=== PATIENT | male | born 1935 | race Caucasian/White ===

== ENCOUNTER → 2016-07-26 12:06 | Outpatient (CLI) | payer MEDICARE, OTHER ==
[~2016-07-26 12:06] MED LIST: ARICEPT5 MG PO; LUMIGAN 0.01%2.5 ML EACH EYE; MILK OF MAGNESI30 ML PO; PRINIVIL20 MG PO; SENOKOT-S TABLE1 TAB PO; TIMOPTIC 0.5 % O5 ML EACH EYE; VITAMIN B-121000 MCG PO; VITAMIN D5000 UNIT PO; XALATAN 0.0052.5 ML EACH EYE; ZOLOFT50 MG PO
== END | disposition home or self-care (01) ==
LOC: D.CT 10:00
DX: I71.4 Abdominal aortic aneurysm, without rupture (principal); T85.638A Leakage of other specified internal prosthetic devices, implants and grafts, initial encounter

== ENCOUNTER 2016-08-20 20:24 | Inpatient (IN) | payer MEDICARE, OTHER ==
[2016-08-20] MEDS ORDERED: PRINIVIL20 MG PO (20:55)
[2016-08-20] MEDS ORDERED: LUMIGAN 0.01%2.5 ML EACH EYE (20:56)
[2016-08-20] MEDS ORDERED: XALATAN 0.0052.5 ML EACH EYE (20:56)
[2016-08-20] MEDS ORDERED: TIMOPTIC 0.5 % O5 ML EACH EYE (20:57)
--- NOTE | 2016-08-20 20:59 | NUR ---
PT WAS ADMITTED TO [facility] FROM [facility] AFTER VISITING WITH DR. MAGDALENO. DR. MAGDALENO REPORTED THAT THE PT HAD ELOPED FROM [facility] AND [place] [address] WHEN STAFF ATTEMPTED TO TAKE PT BACK INTO THE BUILDING HE BECAME COMBATIVE WITH STAFF. PT HAS BEEN REFUSING MEDICATIONS AND CARE PER FACILITY. PT CONSENTED TO BE ADMITTED TO [facility]. PT IS ALMOST BLIND AND HAS DIFFICULTY SEEING THINGS. STAFF POINTS THINGS OUT AND GUIDES PT TO WHERE HE NEEDS TO BE. PT IS CONFUSED BUT NO AGGRESSION NOTED AT THIS TIME. PT BROUGHT HIS OWN WALKER. FALL PRECAUTIONS INITIATED. CODE STATUS ADDRESSED AND PT IS A FULL CODE.
[2016-08-21 06:52] LABS: BASOPHILS 0.2 % (0.0-2.0); EOSINOPHILS 6.4 % (0-7); HEMATOCRIT 36.5 % (42.0-54.0); HEMOGLOBIN 11.5 g/dL (13.5-17.5); IMMATURE GRANULOCYTES 0.1 % (0-5); LYMPHOCYTES 24.8 % (15-50); MCH 29.7 pg (26.0-34.0); MCHC 31.5 g/dL (31.0-37.0); MCV 94.3 fL (80.0-100.0); MEAN PLATELET VOLUME 9.4 fL (7.4-10.4); NEUTROPHILS 59.5 % (40-80); PLATELET COUNT 188 10x3/uL (130-400); RBC 3.87 10x6/uL (4.20-6.10); RDW 14.3 % (11.5-14.5); WBC 8.7 10x3/uL (4.8-10.8)
[2016-08-21 07:07] LABS: HEMOGLOBIN A1C 4.9 % (4.8-6.0)
[2016-08-21 07:22] LABS: ALBUMIN 3.1 g/dL (3.4-5.0); ANION GAP 10.8 mmol/L (8-16); BILIRUBIN - TOTAL 0.4 mg/dL (0.2-1.3); CALCIUM 8.6 mg/dL (8.5-10.1); CHOL - HDL RATIO 2.9 ratio (2.3-4.9); CREATININE - SERUM 1.2 mg/dL (0.6-1.3); LDL-HDL RATIO 1.7 ratio (1.5-3.5); POTASSIUM - SERUM 3.8 mmol/L (3.5-5.1); PROTEIN - SERUM 6.1 g/dL (6.4-8.2); THYROID STIMULATING HORMONE 1.82 uIU/mL (0.36-3.74)
[2016-08-21 08:36] VITALS: BP 185/95
[2016-08-21 10:57] VITALS: Ht 170.2 cm
--- NOTE | 2016-08-21 14:48 | NUR ---
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 appetite good, feeds self. Administer medications as ordered and provide group activity as directed. No s/s adverse reaction to medications. Cont current plan of care, monitoring for aggression, elopement, and combativeness.
[2016-08-21 19:30] VITALS: BP 165/72
--- NOTE | 2016-08-21 23:48 | NUR ---
B) Recieved patient laying on the couch in the day room, alert and oriented to self, calm and cooperative with staff, I) Administered perscribed medications, assisted with ambulation, R) Medication compliant, friendly and pleasant, P) Continue plan of care, continue to monitor.
[2016-08-22 06:14] LABS: RAPID PLASMA REAGIN Non Reactive (Non Reactive)
[2016-08-22 08:21] LABS: FOLATE (FOLIC ACID) - SERUM 11.7 ng/mL (>3.0)
[2016-08-22 09:32] VITALS: BP 195/89
[2016-08-22 10:19] LABS: VITAMIN D 25 HYDROXY 13.1 ng/mL (30.0-100.0)
--- NOTE | 2016-08-22 12:03 | NUR ---
(B)RECEIVED PATIENT SITTING IN A CHAIR AT THE NURSES STATION. ORIENTED TO SELF AND DAY AEB STATING "WHERE I WAS YESTERDAY" WHEN ASKING WHERE HE IS. POOR INSIGHT INTO THE REASON FOR HOSPITALIZATION RELATING "I REALLY DON'T KNOW." WHEN PATIENT WAS TOLD THE REASON FOR HOSPITALIZATION PATIENT RELATES "I TOLD THEM I HAD TO GO HOME AND THEY RELEASED ME SO I THOUGHT I COULD LEAVE." PATIENT HAS A SORE TO THE RIGHT SIDE OF HIS NOSE RELATING TO THE NURSE IT IS CANCER. ALSO MIKE TO LEFT EYE. (I)ADMINISTER MEDS AND MONITOR COMPLIANCE. REORIENT NEEDED. (R)MED COMPLIANT. POOR REORIENTATION DUE TO IMPAIRED ABILITY TO COMPREHEND, PROCESS AND MAINTAIN INFORMATION. (P)CONTINUE POC AND MAINTAIN FALL PRECAUTIONS.
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
--- NOTE | 2016-08-22 14:39 | PSY ---
PATIENT NAME:DEREJE PAULINO SR MEDICAL RECORD: [id number] : 34 LOCATION:[facility] ADMISSION DATE: 08/20/16 ACCOUNT: [id number] PSYCHIATRIC EVALUATION DATE OF EVALUATION: 08/21/16 Psychiatric Evaluation IDENTIFYING DATA: The patient is 81 years old and he is admitted to the hospital on a voluntary basis. CHIEF COMPLAINT: Confusion. HISTORY OF PRESENT ILLNESS: The patient lives in a local assisted living center. Apparently, he has been walking away from the center and has been found near the highway more than once. On more than one occasion, the patient became combative with the staff at the assisted living center after he had walked away. He has been refusing his medications there and cannot give any good reason why he will not take them. When I asked about this, he denies all of it, says that it is all made up. The patient has almost no visual acuity, I presume that is related to macular degeneration, but I do not know with certainty. He denies thoughts of harming himself or others. He denies psychotic symptoms. PAST MEDICAL HISTORY: Significant for glaucoma, hypertension. PAST PSYCHIATRIC HISTORY: Negative by his report. The patient has not been diagnosed with dementia as far as I know. FAMILY HISTORY: Unknown. ALLERGIES: No known drug allergies. CURRENT MEDICATIONS: Include multiple eye drops for glaucoma and Zestril. SOCIAL HISTORY: The patient is . He lives in [facility]. He does have adult children who are involved with his care. MENTAL STATUS EXAMINATION: The patient is awake, alert and oriented to person, place and somewhat to time and situation. His mood is euthymic. His affect appropriate. Thought processes are circumstantial. Memory, concentration and abstraction abilities are moderately impaired and he denies any active intent to harm himself or others as well as overt psychotic symptoms. ASSETS: Supportive family members. LIABILITIES: Limited insight. 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 AXIS II: None. AXIS III: Blindness and hypertension. AXIS IV: Moderate stressors. AXIS V: Global assessment of functioning is 30. PLAN: At this time, the patient is admitted to the hospital for a comprehensive medical, psychological, and social evaluation. He will be treated with both mood stabilizing and memory enhancing medications. His long-term prognosis is guarded. TRANSINT:[id number] Voice Confirmation ID: [id number] DOCUMENT ID: [id number] STEPHANIE SMITH MD at 1439 CC: [id number] DICTATION DATE: 08/21/161824 SCAFFOLD BUILDER: 08/21/162041 ADM IN [facility] [address] [place] [address]
[2016-08-22 20:24] VITALS: BP 125/69
--- NOTE | 2016-08-23 02:35 | NUR ---
PATIENT IN DAYROOM ON SOFA. OREINTED TO SELF, TIME AND PLACE. PATIENT IS ISOLATING. HE IS ANXIOUS ABOUT LEAVING THE UNIT. HE HAS CONCERNS ABOUT WANTING TO PERSERVE HIS REMAINING EYESIGHT. PATIENT IS COOPERATIVE WITH MEDICATION BUT GUARDED. CONTINUE TO MONITOR, CONTINUE PLAN OF CARE.
[2016-08-23 09:25] VITALS: BP 180/102
--- NOTE | 2016-08-23 12:13 | NUR ---
B.) Alert and oriented to name only, has no insight to place, time or reason for hospitalization, when asked questions only response is " going over there for breakfast." I.) Administer medications and monitor compliance, monitor for any inappropriate behavior. Encourage group participation and monitor safety. R.) No evidence of reorientaion, AEB inability to process and retain information. Follows directions with no aggression. Compliant with medications and care. Had Dr. Jean testing today. P.) Continue with plan of care.
[2016-08-23 13:45] LABS: APPEARANCE CLEAR (CLEAR); BACTERIA FEW /hpf (NONE SEEN); BILIRUBIN NEGATIVE (NEGATIVE); COLOR YELLOW (YELLOW); EPITHELIAL CELLS 0-5 /hpf (0-5); GLUCOSE NEGATIVE (NEGATIVE); KETONE NEGATIVE (NEGATIVE); LEUKOCYTE ESTERASE TRACE (NEGATIVE); MUCUS <1+ /lpf (NONE SEEN); NITRITE NEGATIVE (NEGATIVE); PROTEIN TRACE mg/dL (NEGATIVE); SPECIFIC GRAVITY 1.015 (1.005-1.020); UROBILINOGEN NORMAL (NORMAL); WHITE CELLS - URINE 0-5 /hpf (0-5)
--- NOTE | 2016-08-23 14:12 | PN ---
PATIENT:DEREJE PAULINO SR MEDICAL RECORD: [id number] LOCATION:[facility]113 ADMISSION DATE: 08/20/16 PROGRESS NOTE DATE OF SERVICE: 08/22/2016 SUBJECTIVE: The patient's case was discussed with staff. He has no new complaint. OBJECTIVE: The patient is very impaired cognitively. He has poor insight about his situation. ASSESSMENT: No change in diagnoses. PLAN: Current medicines and therapies have been reviewed and will be maintained. His long-term prognosis is guarded. I am going to start him on a dose of Aricept to 5 mg at bedtime. Aricept is being used to treat his underlying psychotic symptoms. TRANSINT:[id number] Voice Confirmation ID: [id number] DOCUMENT ID: [id number] STEPHANIE SMITH MD at 1412 CC: [id number] DICTATION DATE: 08/22/16 1836 DOOR MANAGER: 08/22/16 9 ADM IN [place] [id number] [place] [address]
[2016-08-23 21:50] VITALS: BP 180/93
--- NOTE | 2016-08-24 02:40 | NUR ---
B) Recieved patient sitting on couch in the day room, alert and oriented to name only, confused and unaware of being in a hospital, I) Administered perscribed medications, redirected as needed, R) Medication compliant, cooperative, P) Continue plan of care, continue to monitor.
[2016-08-24 09:40] VITALS: BP 172/96
--- NOTE | 2016-08-24 11:57 | PN ---
PATIENT:DEREJE PAULINO SR MEDICAL RECORD: [id number] LOCATION:[facility]113 ADMISSION DATE: 08/20/16 PROGRESS NOTE DATE OF SERVICE: 08/23/2016 SUBJECTIVE: The patient's case was discussed with staff. He has no new complaint. OBJECTIVE: The patient has not been aggressive with staff today. He has been refusing some of his medications intermittently, but denies it when I ask about it. ASSESSMENT: No change in diagnoses. PLAN: Brief supportive and educational interventions were made. Senior Living prognosis is guarded. TRANSINT:[id number] Voice Confirmation ID: [id number] DOCUMENT ID: [id number] STEPHANIE SMITH MD at 1157 CC: [id number] DICTATION DATE: 08/23/16 1444 PRECISION INSTRUMENT MAKER: 08/23/16 1831 ADM IN [place] [id number] [place] [address]
--- NOTE | 2016-08-24 13:30 | NUR ---
Alert and oriented to self only, when asked where he is he sttes " this table, same place as yesterday." would never state place or reason for hospitalization. Smiles and avoids answering questions. " Administer medications and monitor compliance. Redirect and reorient as need. Monitor for any exit seeking behaviors. Maintain safety. Compliant with medications, no evidence of reorientations, states "my mind is slipping." Ambulatory on unit with no exit seeking noted. No aggression. Cooperative with unit milieu. Safety maintained.
[2016-08-24 19:30] VITALS: BP 168/96
--- NOTE | 2016-08-25 02:13 | NUR ---
B) Recieved sitting on the couch in the day room, alert and oriented to self, calm and cooperative, confused and unaware of surroundings, I) Administered perscribed medications, monitored for falls and safety, R) Medication compliant, resting now quietly in his room, P) Continue plan of care, continue to monitor.
[2016-08-25 07:00] VITALS: BP 180/79
--- NOTE | 2016-08-25 15:12 | NUR ---
PT IS RECEIVED SITTING IN CHAIR IN FRONT OF NURSE STATION. PT IS ALERT AND ORIENTED TO SELF ONLY. PT DENIES PAIN. NO HALLUCIANTIONS ARE NOTED OR REPORTED. PT IS QUITE, CALM AND SITS ON THE COUCH MAJORITY OF THE DAY. PT HAS BEEN COOPERATIVE WITH STAFF AND IS COMPLIANT WITH MED'S AND CARE. NO AGGRESSION NOTED. PT IS REDIRECTED AND REORIENTED NEEDED. SAFETY MEASURES ARE IMPLEMENTED. WILL CONTINUE TO MONITOR.
[2016-08-25 19:30] VITALS: BP 190/73
--- NOTE | 2016-08-25 20:55 | NUR ---
RECEIVED IN DAYROOM. SITTING ON SOFA BY HIMSELF. NOT SOCIALIZING WITH PEERS. JUST LOOKS AROUND AT WHAT EVERYONE IS DOING. CALM AND COOPERATIVE WITH CARE AND ASSESSMENTS. NO SIGNS OF AGGRESSION. ENCOURAGE TO SOCIALIZE WITH PEERS AND EXPRESS HIS NEEDS. CONTINUES TO SIT QUIETLY. CONTINUE PLAN OF CARE
[2016-08-26 08:08] VITALS: BP 167/98
--- NOTE | 2016-08-26 09:44 | NUR ---
SW ATTEMPTED TO CONTACT PT'S [facility], TO DISCUSS DISCHARGE PLANNING AND COGNITIVE TESTING RESULTS. SW COULD NOT LEAVE VOICEMAIL.
--- NOTE | 2016-08-26 17:16 | NUR ---
Alert and oriented to self only, has no insight to place or reason for hospitalization. Responds with " I'm here." Pleasant with care. Administered medications and patient was compliant. Redirect for any inappropriate behavior, reorient as need. No evidence of reorientation, unable to retain information, good behavior control with no aggresion, walks around with minimal conversation with others. Calm and cooperative with unit milieu. Safety maintained. Continue with plan of care.
[2016-08-26 20:00] VITALS: BP 112/72
--- NOTE | 2016-08-26 21:12 | NUR ---
RECEIVED IN DAYROOM. SITTING ON SOFA WITH A PEERS WITH EYES OPEN. CALM AND COOPERATIVE WITH CARE AND ASSESSMENT. NOT SOCIALIZING WITH STAFF OR PEERS. CONFUSED. NO SIGNS OF AGGRESSION. CONTINUES TO SIT QUIETLY ON SOFA. CONTINUE PLAN OF CARE
[2016-08-27 09:06] VITALS: BP 182/79
--- NOTE | 2016-08-27 09:23 | PN ---
PATIENT:DEREJE PAULINO SR MEDICAL RECORD: [id number] LOCATION:[facility] M[facility] ADMISSION DATE: 08/20/16 PROGRESS NOTE DATE OF SERVICE: 08/26/2016 SUBJECTIVE: The patient's case was discussed with staff. He has no new complaint. The patient is quite impaired cognitively, but has not been aggressive today. He has pretty limited insight about his situation. ASSESSMENT: No change in diagnoses. PLAN: The patient is being treated with Aricept to assist with his cognitive impairment. He was seen by Dr. Jean and clearly has an advanced dementia. His long-term prognosis is guarded. Clearly, the patient had dementia for a long time. Prior to being displaced at the assisted living center, he was living in a garage with a car and giving away money to strangers. His primary care doctor had given him cholinesterase inhibiting medications, I am very much at a loss as to how this diagnosis could be a surprise to his family. He is not mildly demented. He is not moderately demented. His testing and my clinical assessment of him both agree he is advanced in his dementia and clearly has been declining for many years. TRANSINT:[id number] Voice Confirmation ID: [id number] DOCUMENT ID: [id number] STEPHANIE SMITH MD at 0923 CC: [id number] DICTATION DATE: 08/26/16 1435 EXECUTIVE SECRETARY SOCIAL WELFARE: 08/26/161957 ADM IN [facility] [address] [place] [address]
--- NOTE | 2016-08-27 10:30 | NUR ---
Alert and oriented to name only has no insight to reason for hospitalization. Administer medications and monitor compliance. Redirect and reorient as need. Monitor for any exit seeking behavior. Monitor safety. Complaint with medications. No evidence of reorientation states place as "I'm here, same place for last 2 weeks, you know I'm 89 years old." unable to retain information for reorientation. Sits quietly on sofa with no exit seeking behavior. Pleasant and cooperative with care with no aggression. Safety maintained. Continue with plan of care.
--- NOTE | 2016-08-27 14:11 | NUR ---
SW ATTEMPTED TO CALL [facility], SEVERAL TIMES TO DISCUSS DISCHARGE PLANS. IS FULL AND CANNOT ACCEPT MESSAGES.
--- NOTE | 2016-08-27 20:51 | NUR ---
RECEIVED IN DAYROOM. SITTING ON SOFA WITH PEERS AT HIS SIDE. CONFUSED. NOT SOCIALIZING WITH PEERS BUT IS PLEASANT WHEN INTERACTING WITH STAFF. NO SIGNS OF AGGRESSION. NOT EXIT SEEKING. ENCOURAGE TO EXPRESS NEEDS. CONTINUES TO SIT QUIETLY ON SOFA CONTINUE PLAN OF CARE
--- NOTE | 2016-08-27 21:20 | NUR ---
PATIENT BECAME RESISTANT TO CARE AND REFUSED PM MEDS AFTER MUCH ENCOURAGEMENT.
[2016-08-27 22:33] VITALS: BP 153/63
--- NOTE | 2016-08-28 00:17 | NUR ---
PATIENT SULLEN AND SITTING ALONE ON COUCH IN DAYROOM. HE BECAME AGITATED AND REFUSED MEDICATION. HE SAID HE HADN'T SEEN HIS IN YEARS AND WANTED TO GO HOME, HE REFUSED HIS MEDICATION. PATIENT WAS REORIENTED BUT REMAINED AGITATED INSISTING THAT HE NEEDED TO TALK TO HIS .
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
[2016-08-28 08:53] VITALS: BP 152/77
--- NOTE | 2016-08-28 10:14 | NUR ---
Nutrition Follow Up: Chart reviewed. Pt is eating 100% meal avg on a regular diet. +BM 08/22/16. No new labs. Meds noted including Vit D, Vit B12. No wt in chart. Pt with excellent po intake. Rec continue current diet. Rec obtaining current wt on pt if possible. Will continue to send selective menus and honor food preferences. RD following.
--- NOTE | 2016-08-28 12:06 | NUR ---
B.) Receieved this am alert and oriented to name only. Calm and pleasant. I.) Administer medications and monitor compliance. Redirect and reorient as need. Monitor for any exit seeking behavior. Monitor safety. R.) Compliant with medications. No exit seeking behavior. Thinks he is in the " assisted living", No evidence of reorientation. Calm and cooperative with care. No aggression. Safety maintained. P.) Continue plan of care.
--- NOTE | 2016-08-28 13:58 | PN ---
PATIENT:DEREJE PAULINO SR MEDICAL RECORD: [id number] LOCATION:[facility]113 ADMISSION DATE: 08/20/16 PROGRESS NOTE DATE OF SERVICE: 08/27/2016 SUBJECTIVE: The patient's case was discussed with staff. He has no new complaint. OBJECTIVE: The patient has not been aggressive today. He has limited insight about his situation. He is being considered for treatment at the Memory Care Unit at the [facility]. I think he is close to being ready to transition there and once those arrangements have been made, it would be reasonable to transition him out of the hospital. TRANSINT:[id number] Voice Confirmation ID: [id number] DOCUMENT ID: [id number] STEPHANIE SMITH MD at 1358 CC: [id number] DICTATION DATE: 08/27/16 1118 MEDICAL MASSAGE THERAPIST: 08/27/16 1203 ADM IN [place] [address] [place] [id number]
[2016-08-28 20:00] VITALS: BP 194/80
--- NOTE | 2016-08-28 23:57 | NUR ---
B) Reiceved patient sitting quietly in the day room, alert and oriented to self, confused and unaware of surroundings, calm and cooperative with care and assessment, I) Administered perscribed medications, monitored for safety, R) Medication compliant, resting now quietly in bed, P) Continue plan of care.
[2016-08-29 09:05] VITALS: BP 180/92
--- NOTE | 2016-08-29 14:27 | NUR ---
(B)RECEIVED PATIENT SITTING IN A CHAIR AT THE NURSE'S STATION. ORIENTED TO SELF ONLY. CONFUSED RELATING "CAME AND HAD BREAKFAST, THEN WENT UP AND USED THE BATHROOM AND NOW SITTING HERE. I CALL IT ASSISTED LIVING." BANDAID TO THE RIGHT SIDE OF THE NOSE. SITS TO SELF WITH MINIMAL INTERACTION. (I)ADMINISTER MEDS AND MONITOR COMPLIANCE. REORIENT NEEDED. (R)TAKES MEDICATIONS HOWEVER ARGUES ABOUT THE AMOUNT HE TAKES RELATING THT HE HAS NEVER TAKEN SO MUCH MEDICINE IN HIS LIFE AND HE DOES NOT FEEL HE NEEDS ALL OF IT HOWEVER AFTER VERBALIZING HIS FEELINGS HE TAKES HIS MEDICATIONS. PATIENT IS FORGETFUL REQUIRING FREQUENT REORIENTATION. (P)CONTINUE POC AND MAINTAIN FALL RECAUTIONS.
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
[2016-08-29] MEDS ORDERED: ZOLOFT50 MG PO (14:54)
[2016-08-29] MEDS ORDERED: ARICEPT5 MG PO (14:54)
[2016-08-29] MEDS ORDERED: SENOKOT-S TABLE1 TAB PO (14:55)
[2016-08-29] MEDS ORDERED: VITAMIN B-121000 MCG PO (14:55)
[2016-08-29] MEDS ORDERED: MILK OF MAGNESI30 ML PO (14:55)
[2016-08-29] MEDS ORDERED: VITAMIN D5000 UNIT PO (14:55)
[2016-08-29 19:30] VITALS: BP 158/79
--- NOTE | 2016-08-30 01:34 | NUR ---
B) recieved sitting in the day room, alert and oriented to self, unaware of where he is, calm and cooperative, every confused , I) Administered perscribed medications, monitored for falls and safety, R) medications compliant, resting quietly now, P) Continue plan of care, continue to monitor.
[2016-08-30 08:41] VITALS: BP 195/86
--- NOTE | 2016-08-30 09:50 | NUR ---
REPORT CALLED TO [facility]. SPOKE WITH RALPH WICK LPN. PAPERWORK REFAXED TO AN ALTERNATE FAX NUMBER.
--- NOTE | 2016-08-30 10:40 | NUR ---
PRESCRIPTIONS CALLED INTO [facility].
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
--- NOTE | 2016-08-30 13:30 | NUR ---
PATIENT DISCHARGED TO [facility] ACCOMPANIED BY FACILITY STAFF VIA FACILITY VEHICLE. DISCHARGE PAPERWORK SENT WITH FACILITY STAFF. PERSONAL BELONGINGS SENT WITH PATIENT. CONDITION STABLE AT TIME OF DISCHARGE.
--- NOTE | 2016-09-01 06:18 | PN ---
PATIENT:DEREJE PAULINO SR MEDICAL RECORD: [id number] LOCATION:T[facility]113 ADMISSION DATE: 08/20/16 PROGRESS NOTE DATE OF SERVICE: 08/30/2016 SUBJECTIVE: No new complaint. OBJECTIVE: The patient is stable. He is scheduled for discharge to [facility] today. On exam, mood is pleasant and euthymic. Affect is bland. Speech is rather terse. Content of thought is negative for overt psychosis. Sensorium is unchanged. ASSESSMENT: No change in diagnosis. PLAN: Discharge later today. TRANSINT:[id number] Voice Confirmation ID: [id number] DOCUMENT ID: [id number] MORGAN CHOI III, MD at 0618 CC: [id number] DICTATION DATE: 08/30/16 1237 LABORER PIE BAKERY: 08/30/160 DIS IN 08/30/16 [place] [address] [place] [address]
--- NOTE | 2016-09-02 14:58 | PN ---
PATIENT:DEREJE PAULINO SR MEDICAL RECORD: [id number] LOCATION:[facility]113 ADMISSION DATE: 08/20/16 PROGRESS NOTE DATE OF SERVICE: 08/29/2016 SUBJECTIVE: The patient's case was discussed with staff. He has no new complaint. OBJECTIVE: The patient denies intent to harm himself or others. He generally tolerates his medicines well. ASSESSMENT: No change in diagnoses. PLAN: The patient is severely impaired cognitively, but in good behavioral control. He will be transitioned out of the hospital tomorrow morning. His long-term prognosis is guarded. TRANSINT:[id number] Voice Confirmation ID: [id number] DOCUMENT ID: [id number] STEPHANIE SMITH MD at 1458 CC: [id number] DICTATION DATE: 08/29/16 1453 TIN FLIPPER: 08/29/16 2130 DIS IN 08/30/16 [facility] [address] [place] [address]
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
== END 2016-08-30 13:30 | disposition home or self-care (01) | DRG 57 ==
LOC: D.PSYCH 20:24
PROVIDERS: ADMIT Psychiatry & Neurology Psychiatry
DX: G30.1 Alzheimer's disease with late onset (principal); F02.81 Dementia in other diseases classified elsewhere, unspecified severity, with behavioral disturbance; H54.0 Blindness, both eyes; H40.9 Unspecified glaucoma; I10 Essential (primary) hypertension; D64.9 Anemia, unspecified; Z91.81 History of falling; E53.8 Deficiency of other specified B group vitamins; E55.9 Vitamin D deficiency, unspecified; Z72.0 Tobacco use; Z85.828 Personal history of other malignant neoplasm of skin

== ENCOUNTER 2018-05-01 07:59 | Emergency (ER) | payer MEDICARE, OTHER ==
[~2018-05-01] VITALS: Ht 170.2 cm; Wt 57.3 kg
[2018-05-01 08:01] VITALS: Ht 170.2 cm; Wt 57.3 kg
[2018-05-01] MEDS ORDERED: NORVASC10 MG PO (10:08)
[2018-05-01] MEDS ORDERED: LASIX40 MG PO (10:10)
[2018-05-01 11:01] VITALS: BP 186/81
== END 2018-05-01 11:03 ==
LOC: D.ER 07:59
DX: R06.00 Dyspnea, unspecified (principal); I10 Essential (primary) hypertension; F03.90 Unspecified dementia, unspecified severity, without behavioral disturbance, psychotic disturbance, mood disturbance, and anxiety; R05 Cough; R09.89 Other specified symptoms and signs involving the circulatory and respiratory systems

== ENCOUNTER 2018-06-17 10:11 | Inpatient (IN) | payer MEDICARE, OTHER ==
[~2018-06-17] VITALS: Ht 170.2 cm; Wt 72.6 kg
[2018-06-17] VITALS (12 sets, daily range): BP systolic 115–172; BP diastolic 61–84; BMI 25.1
[~2018-06-17 10:11] MED LIST changes: +LASIX40 MG PO; +NORVASC10 MG PO
[2018-06-17] MEDS ORDERED: SEROQUEL50 MG PO (10:16)
--- NOTE | 2018-06-17 11:30 | NUR ---
URINE COLLECTED BY NURSE AND SENT TO LAB.
[2018-06-17 13:10] LABS: BASOPHILS 0.1 % (0-2); EOSINOPHILS 1.8 % (0-7); HEMATOCRIT 35.7 % (42.0-54.0); HEMOGLOBIN 11.8 g/dL (13.5-17.5); IMMATURE GRANULOCYTES 0.2 % (0-5); LYMPHOCYTES 15.8 % (15-50); MCH 28.7 pg (26.0-34.0); MCHC 33.1 g/dL (31.0-37.0); MCV 86.9 fL (80.0-100.0); MEAN PLATELET VOLUME 9.3 fL (7.4-10.4); MONOCYTES 7.3 % (2-11); NEUTROPHILS 74.8 % (40-80); PLATELET COUNT 212 10x3/uL (130-400); RBC 4.11 10x6/uL (4.20-6.10); RDW 14.8 % (11.5-14.5); WBC 8.1 10x3/uL (4.8-10.8)
[2018-06-17 13:15] LABS: ALBUMIN 3.6 g/dL (3.4-5.0); ANION GAP 15.5 mmol/L (8-16); BILIRUBIN - TOTAL 0.31 mg/dL (0.2-1.3); CALCIUM 8.8 mg/dL (8.5-10.1); CARBON DIOXIDE 27.2 mmol/L (21.0-32.0); CREATININE - SERUM 2.2 mg/dL (0.6-1.3); PROTEIN - SERUM 7.6 g/dL (6.4-8.2)
[2018-06-17 13:23] LABS: POTASSIUM - SERUM 2.7 mmol/L (3.5-5.1)
--- NOTE | 2018-06-17 15:00 | NUR ---
PT CLEANED UP AND GIVEN NEW BRIEF. RESTING QUIETLY. NO DISTRESS NOTED.
[2018-06-17 16:04] LABS: APPEARANCE CLEAR (CLEAR); BILIRUBIN NEGATIVE (NEGATIVE); COLOR YELLOW (YELLOW); GLUCOSE NEGATIVE (NEGATIVE); KETONE NEGATIVE (NEGATIVE); NITRITE NEGATIVE (NEGATIVE); PROTEIN NEGATIVE (NEGATIVE); UROBILINOGEN NORMAL (NORMAL)
--- NOTE | 2018-06-17 18:54 | NUR ---
PT RESTING IN BED. LEGALLY BLIND. AROUSED BY VERBAL STIMULI. NO S/S OF ACUTE DISTRESS. CL IN PLACE.
--- NOTE | 2018-06-17 20:00 | NUR ---
PT SITTING UP IN BED, NO SIGNS OF DISTRESS. IV LEFT FA INFUSING NS W/ 40K @ 100. ORIENTED TO SELF ONLY. STATES NO PAIN OR NEEDS AT THIS TIME. CL IN REACH, WILL CONTINUE TO MONITOR
[2018-06-18 00:59] VITALS: BP 118/82
[2018-06-18 06:42] LABS: ALBUMIN 3.3 g/dL (3.4-5.0); BILIRUBIN - TOTAL 0.31 mg/dL (0.2-1.3); CALCIUM 8.3 mg/dL (8.5-10.1); CARBON DIOXIDE 25.3 mmol/L (21.0-32.0); CREATININE - SERUM 1.7 mg/dL (0.6-1.3); MAGNESIUM - SERUM 1.4 mg/dL (1.8-2.4); PHOSPHOROUS 2.3 mg/dL (2.5-4.9); PROTEIN - SERUM 6.8 g/dL (6.4-8.2)
[2018-06-18 06:44] LABS: ANION GAP 16.4 mmol/L (8-16); POTASSIUM - SERUM 4.7 mmol/L (3.5-5.1)
[2018-06-18 07:15] LABS: BASOPHILS 0.3 % (0-2); EOSINOPHILS 2.9 % (0-7); HEMATOCRIT 35.7 % (42.0-54.0); HEMOGLOBIN 11.6 g/dL (13.5-17.5); IMMATURE GRANULOCYTES 0.3 % (0-5); LYMPHOCYTES 22.4 % (15-50); MCH 28.9 pg (26.0-34.0); MCHC 32.5 g/dL (31.0-37.0); MCV 88.8 fL (80.0-100.0); MEAN PLATELET VOLUME 9.7 fL (7.4-10.4); MONOCYTES 13.4 % (2-11); NEUTROPHILS 60.7 % (40-80); PLATELET COUNT 231 10x3/uL (130-400); RBC 4.02 10x6/uL (4.20-6.10); RDW 15.1 % (11.5-14.5); WBC 7.9 10x3/uL (4.8-10.8)
[2018-06-18 08:46] VITALS: BP 161/73
--- NOTE | 2018-06-18 09:41 | NUR ---
PT LYING IN BED, NO S/S OF DITRESS, BED IN LOW POSITION, PT ABLE TO FOLLOW COMMANDS AND WAKE EASILY. BED IN LOW POSITION, CL IN REACH CONTINUE WITH PLAN OF CARE
--- NOTE | 2018-06-18 12:36 | NUR ---
PT LYING IN BED, NO NEEDS VOICED, BED IN LOW POSITION CL IN REACH NO S/S OF DISTRESS CONTINUE WITH PLAN OF CARE
[2018-06-18 13:28] VITALS: Ht 170.2 cm; Wt 72.6 kg
[2018-06-18 15:58] VITALS: BP 106/58
--- NOTE | 2018-06-18 16:16 | NUR ---
PT RESTING IN BED WITH EYES CLOSED. RESPIRATIONS ARE EVEN AND UNLABORED. PT DENIES PRESENCE OF PAIN AT THIS TIME. BED IS IN THE LOWEST POSITION. CALL LIGHT AND BEDSIDE TABLE ARE WITHIN REACH. FALL PRECAUTIONS ARE IN PLACE. ALEXIS ALARM IS ON.
[2018-06-18 18:35] VITALS: BP 140/70
[2018-06-19 07:50] LABS: ANION GAP 13.2 mmol/L (8-16); BILIRUBIN - TOTAL 0.36 mg/dL (0.2-1.3); CALCIUM 8.5 mg/dL (8.5-10.1); CARBON DIOXIDE 25.4 mmol/L (21.0-32.0); CREATININE - SERUM 1.4 mg/dL (0.6-1.3); POTASSIUM - SERUM 4.6 mmol/L (3.5-5.1); PROTEIN - SERUM 6.6 g/dL (6.4-8.2)
[2018-06-19 07:51] LABS: BASOPHILS 0.3 % (0-2); EOSINOPHILS 3.2 % (0-7); HEMATOCRIT 36.1 % (42.0-54.0); HEMOGLOBIN 11.4 g/dL (13.5-17.5); IMMATURE GRANULOCYTES 0.1 % (0-5); LYMPHOCYTES 29.1 % (15-50); MCH 28.4 pg (26.0-34.0); MCHC 31.6 g/dL (31.0-37.0); MEAN PLATELET VOLUME 9.5 fL (7.4-10.4); MONOCYTES 10.4 % (2-11); NEUTROPHILS 56.9 % (40-80); PLATELET COUNT 229 10x3/uL (130-400); RBC 4.01 10x6/uL (4.20-6.10); RDW 15.2 % (11.5-14.5); WBC 7.1 10x3/uL (4.8-10.8)
--- NOTE | 2018-06-19 08:30 | NUR ---
PT RESTING IN BED. BED SOILED. ASSITED TELESALES AGENT IN COMPLETE BED CHANGE AND BATH. NO S/S OF ACUTE DISTRESS. CL IN PLACE.
[2018-06-19 08:37] VITALS: BP 153/73
--- NOTE | 2018-06-19 11:30 | NUR ---
Rehab Prescreening Consult recieved and the chart has been reviewed. The notes indicate he is confused and disoriented. We will visit with him to determine if he will be able to follow commands and participate in the required 3 hrs of therapy every day 5 days a week. Ivone Clifton RN Clinical Liaison, Rehab
--- NOTE | 2018-06-19 12:08 | NUR ---
Visited with the patient regarding the rehab eval. 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 He does not know his birthdate or the year. He is fixated on his right shoulder and says the doctors have never seen anything like it before so he cant use it. I do not feel he would be able to retain any information that rehab could offer. Recommend back to the memory care unit at [facility] with HH. Ivone Clifton RN CL
--- NOTE | 2018-06-19 12:19 | MORECARE ---
CASE MANAGEMENT DISCHARGE SUMMARY PATIENT: DEREJE PAULINO SR UNIT: [id number] ADM DATE: 06/17/18 AGE: 82 : 34 SEX: M ROOM/BED: D.2213 AUTHOR: KAILEE SHARIF PHYSICIAN: REFERRING PHYSICIAN: MARLA CORTEZ DO DATE OF SERVICE: 06/19/18 Discharge Plan Patient Name: DEREJE PAULINO Facility: [facility]:[place] : 1935 Planned Disposition: Assisted Living Anticipated Discharge Date: Discharge Date: Expected LOS: Initial Reviewer: [email or web address] Initial Review Date: 06/17/2018 Generated: 06/19/18 1:19 pm DCPIA - Discharge Planning Initial Assessment Updated by [email or web address]: Kelsey Noble on 06/19/18 12:19 pm * Is the patient Alert and Oriented? Yes * How many steps to enter\exit or inside your home? * Pharmacy [facility] * Preadmission Environment Assisted Living * Facility Name [facility] * ADLs Partial Dependent * Partial ADLs (Assistance needed) Bathing Medication Management * Equipment Rolling Walker * List name and contact numbers for known caregivers / representatives who currently or will assist patient after discharge: Yoana (daughter) [phone] * Verbal permission to speak to the caregivers and representatives has been obtained from the patient. Yes * Community resources currently utilized Assisted Living * Please name any agencies selected above. [facility] * Additional services required to return to the preadmission environment? Yes * Can the patient safely return to the preadmission environment? Yes * Has this patient been hospitalized within the prior 30 days at any hospital? No Patient Name: DEREJE PAULINO Page [id number] at 1219 All edits/amendments must be made on the electronic document DICTATION DATE: 06/19/18 1219 REFRIGERATOR GLAZIER: SUSU 06/19/18 1219 RPT#: [id number] DC DATE: STATUS: ADM IN [facility] [address] [place] [address] END OF REPORT
[2018-06-19 12:27] VITALS: BP 173/79
--- NOTE | 2018-06-19 12:37 | MORECARE ---
CASE MANAGEMENT DISCHARGE SUMMARY PATIENT: DEREJE PAULINO SR UNIT: [id number] ADM DATE: 06/17/18 AGE: 82 : 34 SEX: M ROOM/BED: D.2213 AUTHOR: KAILEE SHARIF PHYSICIAN: REFERRING PHYSICIAN: MARLA CORTEZ DO DATE OF SERVICE: 06/19/18 Discharge Plan Patient Name: DEREJE PAULINO Facility: [facility]:[place] : 1935 Planned Disposition: Assisted Living Anticipated Discharge Date: Discharge Date: Expected LOS: Initial Reviewer: [email or web address] Initial Review Date: 06/17/2018 Generated: 06/19/18 1:36 pm Comments DCP- Discharge Planning Updated by [email or web address]: Kelsey Noble on 06/19/18 11:[address] Patient Name: DEREJE PAULINO Admission Status: ER Accout number: [id number] Admission Date: 06-17-2018 : 1935 Admission Diagnosis: Attending: MARLA CORTEZ Current LOS: 2 Anticipated DC Date: Planned Disposition: Assisted Living Primary Insurance: MEDICARE A & B Discharge Planning Comments: CM met with patient to assess discharge planning needs. Patient was pleasantly confused. He lives at [facility]. Before he fell his prior level of function was ambulatory with a walker per [employer]ua ( who works at [facility] ) He is blind. Inpatient rehab day not think that he will be able to retain anything at inpatient rehab and would recommend home health with PT. CM will continue to follow and assist with DC planning as needed. I called Akosua at [facility] and she stated that she will send someone to evaluate him. Paperback Machine Operator: Kelsey Noble DCPIA - Discharge Planning Initial Assessment Updated by [email or web address]: Kelsey Noble on 06/19/18 12:19 pm * Is the patient Alert and Oriented? Yes * How many steps to enter\exit or inside your home? * Pharmacy [facility] * Preadmission Environment Assisted Living * Facility Name [facility] * ADLs Partial Dependent * Partial ADLs (Assistance needed) Bathing Medication Management * Equipment Rolling Walker * List name and contact numbers for known caregivers / representatives who currently or will assist patient after discharge: Yoana (daughter) [phone] * Verbal permission to speak to the caregivers and representatives has been obtained from the patient. Yes * Community resources currently utilized Assisted Living * Please name any agencies selected above. [facility] * Additional services required to return to the preadmission environment? Yes * Can the patient safely return to the preadmission environment? Yes * Has this patient been hospitalized within the prior 30 days at any hospital? No Last DP export: 06/19/18 11:19 a Patient Name: DEREJE PAULINO Page [id number] at 1237 All edits/amendments must be made on the electronic document DICTATION DATE: 06/19/18 1236 WHEEL PRESSER: SUSU 06/19/18 1236 RPT#: [id number] DC DATE: STATUS: ADM IN [facility] [address] [place] [address] END OF REPORT
--- NOTE | 2018-06-19 15:23 | MORECARE ---
CASE MANAGEMENT DISCHARGE SUMMARY PATIENT: DEREJE PAULINO SR UNIT: [id number] ADM DATE: 06/17/18 AGE: 82 : 34 SEX: M ROOM/BED: D.2213 AUTHOR: KAILEE SHARIF PHYSICIAN: REFERRING PHYSICIAN: MARLA OCRTEZ DO DATE OF SERVICE: 06/19/18 Discharge Plan Patient Name: DEREJE PAULNIO Facility: [facility]:[place] : 1935 Planned Disposition: Assisted Living Anticipated Discharge Date: Discharge Date: Expected LOS: Initial Reviewer: [email or web address] Initial Review Date: 06/17/2018 Generated: 06/19/18 4:23 pm Comments DCP- Discharge Planning Updated by [email or web address]: Kelsey Noble on 06/19/18 2:[address] KARMA WITH [facility] HERE TO ASSESS PATIENT, SHE THINKS HE WILL BE OK TO GO BACK HOME. SHE IS TAKING CLINICAL TO NURSING STAFF FOR APPROVAL, WILL LET US KNOW. CM TO FOLLOW AND ASSIST NEEDED DCP- Discharge Planning Updated by [email or web address]: Kelsey Noble on 06/19/18 11:[address] Patient Name: DEREJE PAULINO Admission Status: ER Accout number: [id number] Admission Date: 06-17-2018 : 1935 Admission Diagnosis: Attending: MARLA CORTEZ Current LOS: 2 Anticipated DC Date: Planned Disposition: Assisted Living Primary Insurance: MEDICARE A & B Discharge Planning Comments: CM met with patient to assess discharge planning needs. Patient was pleasantly confused. He lives at [facility]. Before he fell his prior level of function was ambulatory with a walker per Akosua ( who works at [facility] ) He is blind. Inpatient rehab day not think that he will be able to retain anything at inpatient rehab and would recommend home health with PT. CM will continue to follow and assist with DC planning as needed. I called Akosua at [facility] and she stated that she will send someone to evaluate him. Biological Sciences Professor: Kelsey Noble DCPIA - Discharge Planning Initial Assessment Updated by [email or web address]: Kelsey Noble on 06/19/18 12:19 pm * Is the patient Alert and Oriented? Yes * How many steps to enter\exit or inside your home? * Pharmacy [facility] * Preadmission Environment Assisted Living * Facility Name [facility] * ADLs Partial Dependent * Partial ADLs (Assistance needed) Bathing Medication Management * Equipment Rolling Walker * List name and contact numbers for known caregivers / representatives who currently or will assist patient after discharge: Yoana (daughter) [phone] * Verbal permission to speak to the caregivers and representatives has been obtained from the patient. Yes * Community resources currently utilized Assisted Living * Please name any agencies selected above. [facility] * Additional services required to return to the preadmission environment? Yes * Can the patient safely return to the preadmission environment? Yes * Has this patient been hospitalized within the prior 30 days at any hospital? No Last DP export: 06/19/18 11:37 a Patient Name: DEREJE PAULINO Page [id number] at 1523 All edits/amendments must be made on the electronic document DICTATION DATE: 06/19/181522 IMAGING MANAGER: SUSU 06/19/181522 RPT#: [id number] DC DATE: STATUS: ADM IN [facility] [address] [place] [address] END OF REPORT
--- NOTE | 2018-06-19 15:38 | MORECARE ---
CASE MANAGEMENT DISCHARGE SUMMARY PATIENT: DEREJE PAULINO SR UNIT: [id number] ADM DATE: 06/17/18 AGE: 82 : 34 SEX: M ROOM/BED: D.2213 AUTHOR: KAILEE SHARIF PHYSICIAN: REFERRING PHYSICIAN: MARLA CORTEZ DO DATE OF SERVICE: 06/19/18 Discharge Plan Patient Name: DEREJE PAULINO Facility: [facility]:[place] : 1935 Planned Disposition: Assisted Living Anticipated Discharge Date: Discharge Date: Expected LOS: Initial Reviewer: [email or web address] Initial Review Date: 06/17/2018 Generated: 06/19/18 4:38 pm Comments DCP- Discharge Planning Updated by [email or web address]: Kelsey Noble on 06/19/18 2:[address] KARMA WITH [facility] HERE TO ASSESS PATIENT, SHE THINKS HE WILL BE OK TO GO BACK HOME. SHE IS TAKING CLINICAL TO NURSING STAFF FOR APPROVAL, WILL LET US KNOW. CM TO FOLLOW AND ASSIST NEEDED DCP- Discharge Planning Updated by [email or web address]: Kelsey Noble on 06/19/18 11:[address] Patient Name: DEREJE PAULINO Admission Status: ER Accout number: [id number] Admission Date: 06-17-2018 : 1935 Admission Diagnosis: Attending: MARLA CORTEZ Current LOS: 2 Anticipated DC Date: Planned Disposition: Assisted Living Primary Insurance: MEDICARE A & B Discharge Planning Comments: CM met with patient to assess discharge planning needs. Patient was pleasantly confused. He lives at [facility]. Before he fell his prior level of function was ambulatory with a walker per Akosua ( who works at [facility] ) He is blind. Inpatient rehab day not think that he will be able to retain anything at inpatient rehab and would recommend home health with PT. CM will continue to follow and assist with DC planning as needed. I called Akosua at [facility] and she stated that she will send someone to evaluate him. Fleet Technician: Kelsey Noble DCPIA - Discharge Planning Initial Assessment Updated by [email or web address]: Kelsey Noble on 06/19/18 12:19 pm * Is the patient Alert and Oriented? Yes * How many steps to enter\exit or inside your home? * Pharmacy [facility] * Preadmission Environment Assisted Living * Facility Name [facility] * ADLs Partial Dependent * Partial ADLs (Assistance needed) Bathing Medication Management * Equipment Rolling Walker * List name and contact numbers for known caregivers / representatives who currently or will assist patient after discharge: Yoana (daughter) [phone] * Verbal permission to speak to the caregivers and representatives has been obtained from the patient. Yes * Community resources currently utilized Assisted Living * Please name any agencies selected above. [facility] * Additional services required to return to the preadmission environment? Yes * Can the patient safely return to the preadmission environment? Yes * Has this patient been hospitalized within the prior 30 days at any hospital? No Last DP export: 06/19/18 2:23 p Patient Name: DEREJE PAULINO Page [id number] at 1538 All edits/amendments must be made on the electronic document DICTATION DATE: 06/19/181537 FOUNTAIN WORKER: SUSU 06/19/181537 RPT#: [id number] DC DATE: STATUS: ADM IN [facility] [address] [place] [address] END OF REPORT
--- NOTE | 2018-06-19 15:46 | MORECARE ---
CASE MANAGEMENT DISCHARGE SUMMARY PATIENT: DEREJE PAULINO SR UNIT: [id number] ADM DATE: 06/17/18 AGE: 82 : 34 SEX: M ROOM/BED: D.2213 AUTHOR: KAILEE SHARIF PHYSICIAN: REFERRING PHYSICIAN: MARLA CORTEZ DO DATE OF SERVICE: 06/19/18 Discharge Plan Patient Name: DEREJE PAULINO Facility: [facility]:[place] : 1935 Planned Disposition: Assisted Living Anticipated Discharge Date: Discharge Date: Expected LOS: Initial Reviewer: [email or web address] Initial Review Date: 06/17/2018 Generated: 06/19/18 4:46 pm Comments DCP- Discharge Planning Updated by [email or web address]: Kelsey Noble on 06/19/18 2:[address] KARMA WITH [facility] HERE TO ASSESS PATIENT, SHE THINKS HE WILL BE OK TO GO BACK HOME. SHE IS TAKING CLINICAL TO NURSING STAFF FOR APPROVAL, WILL LET US KNOW. CM TO FOLLOW AND ASSIST NEEDED DCP- Discharge Planning Updated by [email or web address]: Kelsey Noble on 06/19/18 11:[address] Patient Name: DEREJE PAULINO Admission Status: ER Accout number: [id number] Admission Date: 06-17-2018 : 1935 Admission Diagnosis: Attending: MARLA CORTEZ Current LOS: 2 Anticipated DC Date: Planned Disposition: Assisted Living Primary Insurance: MEDICARE A & B Discharge Planning Comments: CM met with patient to assess discharge planning needs. Patient was pleasantly confused. He lives at [facility]. Before he fell his prior level of function was ambulatory with a walker per [employer] ( who works at [facility] ) He is blind. Inpatient rehab day not think that he will be able to retain anything at inpatient rehab and would recommend home health with PT. CM will continue to follow and assist with DC planning as needed. I called Akosua at [facility] and she stated that she will send someone to evaluate him. Paste Worker: Kelsey Noble DCPIA - Discharge Planning Initial Assessment Updated by [email or web address]: Kelsey Noble on 06/19/18 12:19 pm * Is the patient Alert and Oriented? Yes * How many steps to enter\exit or inside your home? * Pharmacy [facility] * Preadmission Environment Assisted Living * Facility Name [facility] * ADLs Partial Dependent * Partial ADLs (Assistance needed) Bathing Medication Management * Equipment Rolling Walker * List name and contact numbers for known caregivers / representatives who currently or will assist patient after discharge: Yoana (daughter) [phone] * Verbal permission to speak to the caregivers and representatives has been obtained from the patient. Yes * Community resources currently utilized Assisted Living * Please name any agencies selected above. [facility] * Additional services required to return to the preadmission environment? Yes * Can the patient safely return to the preadmission environment? Yes * Has this patient been hospitalized within the prior 30 days at any hospital? No External Providers External Provider: [facility] Next Contact Date: Service Request Date: Service Type: Resolution: Reviewer: Comments: Last DP export: 06/19/18 2:38 p Patient Name: DEREJE PAULINO Page [id number] at 1546 All edits/amendments must be made on the electronic document DICTATION DATE: 06/19/181544 WHOLESALE AND RETAIL MERCHANT: SUSU 06/19/18 154 RPT#: [id number] DC DATE: STATUS: ADM IN [facility] [address] [place] [address] END OF REPORT
--- NOTE | 2018-06-19 15:57 | MORECARE ---
CASE MANAGEMENT DISCHARGE SUMMARY PATIENT: DEREJE PAULINO SR UNIT: [id number] ADM DATE: 06/17/18 AGE: 82 : 34 SEX: M ROOM/BED: D.2213 AUTHOR: KAILEE SHARIF PHYSICIAN: REFERRING PHYSICIAN: MARLA CORTEZ DO DATE OF SERVICE: 06/19/18 Discharge Plan Patient Name: DEREJE PAULINO Facility: [facility]:[place] : 1935 Planned Disposition: Assisted Living Anticipated Discharge Date: Discharge Date: Expected LOS: Initial Reviewer: [email or web address] Initial Review Date: 06/17/2018 Generated: 06/19/18 4:57 pm Comments DCP- Discharge Planning Updated by [email or web address]: Kelsey Noble on 06/19/18 2:[address] PATIENT WILL BE DISCHARGING BACK TO [place] TODAY, NEHA WILL BE THE ONE WHO WILL PICK HIM UP. SHE WILL NEED TO BE CALLED AT [address] [place] [address] WHEN HE IS READY. I HAVE SET HIM UP WITH [facility], PT, OT. PILO IN CHART. I ALSO SPOKE WITH KARMA AT [facility] AND SHE STATED THERE IS NOT ANY FAMILY HERE. CM WILL CONTINUE TO FOLLOW AND ASSIST WITH DC PLANNING. DCP- Discharge Planning Updated by [id number]: Kelsey Noble on 06/19/18 2:[address] KARMA WITH [facility] HERE TO ASSESS PATIENT, SHE THINKS HE WILL BE OK TO GO BACK HOME. SHE IS TAKING CLINICAL TO NURSING STAFF FOR APPROVAL, WILL LET US KNOW. CM TO FOLLOW AND ASSIST NEEDED DCP- Discharge Planning Updated by [email or web address]: Kelsey Noble on 06/19/18 11:[address] Patient Name: DEREJE PAULINO Admission Status: ER Accout number: [id number] Admission Date: 06-17-2018 : 1935 Admission Diagnosis: Attending: MARLA CORTEZ Current LOS: 2 Anticipated DC Date: Planned Disposition: Assisted Living Primary Insurance: MEDICARE A & B Discharge Planning Comments: CM met with patient to assess discharge planning needs. Patient was pleasantly confused. He lives at [facility]. Before he fell his prior level of function was ambulatory with a walker per Akosua ( who works at [facility] ) He is blind. Inpatient rehab day not think that he will be able to retain anything at inpatient rehab and would recommend home health with PT. CM will continue to follow and assist with DC planning as needed. I called Akosua at [facility] and she stated that she will send someone to evaluate him. Continuous Drier Operator: Kelsey Noble DCPIA - Discharge Planning Initial Assessment Updated by [email or web address]: Kelsey Noble on 06/19/18 12:19 pm * Is the patient Alert and Oriented? Yes * How many steps to enter\exit or inside your home? * Pharmacy [facility] * Preadmission Environment Assisted Living * Facility Name [facility] * ADLs Partial Dependent * Partial ADLs (Assistance needed) Bathing Medication Management * Equipment Rolling Walker * List name and contact numbers for known caregivers / representatives who currently or will assist patient after discharge: Yoaan (daughter) [phone] * Verbal permission to speak to the caregivers and representatives has been obtained from the patient. Yes * Community resources currently utilized Assisted Living * Please name any agencies selected above. [facility] * Additional services required to return to the preadmission environment? Yes * Can the patient safely return to the preadmission environment? Yes * Has this patient been hospitalized within the prior 30 days at any hospital? No Last DP export: 06/19/18 2:46 p Patient Name: DEREJE PAULINO Page [id number] at 1557 All edits/amendments must be made on the electronic document DICTATION DATE: 06/19/181555 X RAY EXAMINER OF AIRCRAFT: SUSU 06/19/181555 RPT#: [id number] DC DATE: STATUS: ADM IN [facility] [address] [place] [address] END OF REPORT
[2018-06-19 16:32] VITALS: BP 128/60
--- NOTE | 2018-06-19 18:15 | NUR ---
IV DC WITH TIP IN TACT. DRESSED PT IN SCRUBS. SENT BELONGINGS AND PAPERWORK WITH TRANSPORT AID. NO S/S OF ACUTE DISTRESS. TAKEN ON FLOOR VIA WC BY AID.
--- NOTE | 2018-06-23 12:26 | MORECARE ---
CASE MANAGEMENT DISCHARGE SUMMARY PATIENT: DEREJE PAULINO SR UNIT: [id number] ADM DATE: 06/17/18 AGE: 82 : 34 SEX: M ROOM/BED: D.2213 AUTHOR: KAILEE SHARIF PHYSICIAN: REFERRING PHYSICIAN: MARLA CORTEZ DO DATE OF SERVICE: 06/23/18 Discharge Plan Patient Name: DEREJE PAULINO Facility: [facility]:[place] : 1935 Planned Disposition: Assisted Living Anticipated Discharge Date: Discharge Date: 06/19/2018 Expected LOS: 0 Initial Reviewer: [email or web address] Initial Review Date: 06/17/2018 Generated: 06/23/18 1:26 pm Comments DCP- Discharge Planning Updated by [email or web address]: Kelsey Noble on 06/19/18 2:[address] PATIENT WILL BE DISCHARGING BACK TO [place] TODAY, NEHA WILL BE THE ONE WHO WILL PICK HIM UP. SHE WILL NEED TO BE CALLED AT [address] [place] [address] WHEN HE IS READY. I HAVE SET HIM UP WITH [facility], PT, OT. PILO IN CHART. I ALSO SPOKE WITH KARMA AT [facility] AND SHE STATED THERE IS NOT ANY FAMILY HERE. CM WILL CONTINUE TO FOLLOW AND ASSIST WITH DC PLANNING. DCP- Discharge Planning Updated by [email or web address]: Kelsey Noble on 06/19/18 2:[address] KARMA WITH [facility] HERE TO ASSESS PATIENT, SHE THINKS HE WILL BE OK TO GO BACK HOME. SHE IS TAKING CLINICAL TO NURSING STAFF FOR APPROVAL, WILL LET US KNOW. CM TO FOLLOW AND ASSIST NEEDED DCP- Discharge Planning Updated by [email or web address]: Kelsey Noble on 06/19/18 11:[address] Patient Name: DEREJE PAULINO Admission Status: ER Accout number: [id number] Admission Date: 06-17-2018 : 1935 Admission Diagnosis: Attending: MARLA CORTEZ Current LOS: 2 Anticipated DC Date: Planned Disposition: Assisted Living Primary Insurance: MEDICARE A & B Discharge Planning Comments: CM met with patient to assess discharge planning needs. Patient was pleasantly confused. He lives at [facility]. Before he fell his prior level of function was ambulatory with a walker per Akosua ( who works at [facility] ) He is blind. Inpatient rehab day not think that he will be able to retain anything at inpatient rehab and would recommend home health with PT. CM will continue to follow and assist with DC planning as needed. I called Akosua at [facility] and she stated that she will send someone to evaluate him. Dip Stand Loader: Kelsey Noble DCPIA - Discharge Planning Initial Assessment Updated by [email or web address]: Kelsey Noble on 06/19/18 12:19 pm * Is the patient Alert and Oriented? Yes * How many steps to enter\exit or inside your home? * Pharmacy [facility] * Preadmission Environment Assisted Living * Facility Name [facility] * ADLs Partial Dependent * Partial ADLs (Assistance needed) Bathing Medication Management * Equipment Rolling Walker * List name and contact numbers for known caregivers / representatives who currently or will assist patient after discharge: Yoana (daughter) [phone] * Verbal permission to speak to the caregivers and representatives has been obtained from the patient. Yes * Community resources currently utilized Assisted Living * Please name any agencies selected above. [facility] * Additional services required to return to the preadmission environment? Yes * Can the patient safely return to the preadmission environment? Yes * Has this patient been hospitalized within the prior 30 days at any hospital? No Last DP export: 06/19/18 2:57 p Patient Name: DEREJE PAULINO Page 12819 at 1226 All edits/amendments must be made on the electronic document DICTATION DATE: 06/23/185 BIOFUELS OPERATIONS MANAGER: SUSU 06/23/18 1225 RPT#: [id number] DC DATE:06/19/18 STATUS: DIS IN [facility] [address] [place] [address] END OF REPORT
== END 2018-06-19 18:53 | disposition home or self-care (01) | DRG 683 ==
LOC: D.ER 10:11 → D.EDHOLD 17:48 → D.MS 17:48
PROVIDERS: Family Medicine; ADMIT Family Medicine
DX: N17.9 Acute kidney failure, unspecified (principal); F02.81 Dementia in other diseases classified elsewhere, unspecified severity, with behavioral disturbance; S43.421A Sprain of right rotator cuff capsule, initial encounter; W19.XXXA Unspecified fall, initial encounter; E87.6 Hypokalemia; I10 Essential (primary) hypertension; G30.9 Alzheimer's disease, unspecified; E86.0 Dehydration

== ENCOUNTER 2018-06-27 18:08 | Emergency (ER) | payer MEDICARE, OTHER ==
[~2018-06-27] VITALS: Ht 170.2 cm; Wt 50.0 kg
[~2018-06-27 18:08] MED LIST changes: +SEROQUEL50 MG PO
[2018-06-27 18:12] VITALS: Ht 170.2 cm; Wt 50.0 kg
[2018-06-27 19:05] LABS: BASOPHILS 0.3 % (0-2); EOSINOPHILS 2.7 % (0-7); HEMATOCRIT 34.2 % (42.0-54.0); HEMOGLOBIN 10.7 g/dL (13.5-17.5); IMMATURE GRANULOCYTES 0.3 % (0-5); LYMPHOCYTES 29.2 % (15-50); MCH 28.2 pg (26.0-34.0); MCHC 31.3 g/dL (31.0-37.0); MCV 90.2 fL (80.0-100.0); MEAN PLATELET VOLUME 9.3 fL (7.4-10.4); NEUTROPHILS 58.5 % (40-80); PLATELET COUNT 200 10x3/uL (130-400); RBC 3.79 10x6/uL (4.20-6.10); RDW 15.1 % (11.5-14.5)
[2018-06-27 19:41] LABS: ALBUMIN 2.8 g/dL (3.4-5.0); ALKALINE PHOSPHATASE 50 U/L (46-116); ALT (SGPT) 8 U/L (10-68); BILIRUBIN - TOTAL 0.16 mg/dL (0.2-1.3); CALC OSMOLALITY 292 mosm/kg (275-300); CALCIUM 8.2 mg/dL (8.5-10.1); CARBON DIOXIDE 30.8 mmol/L (21.0-32.0); CHLORIDE - SERUM 105 mmol/L (98-107); CREATININE - SERUM 2.1 mg/dL (0.6-1.3); GLUCOSE 111 mg/dL (74-106); POTASSIUM - SERUM 3.9 mmol/L (3.5-5.1); PROTEIN - SERUM 6.2 g/dL (6.4-8.2); SODIUM 143 mmol/L (136-145); UREA NITROGEN 31 mg/dL (7-18); eGFR NON AFRICAN AMERICAN 32 mL/min (90-120)
[2018-06-27 19:52] LABS: CKMB 0.7 U/L (0.0-3.6); CREATINE KINASE 32 UL (21-232); MAGNESIUM - SERUM 1.3 mg/dL (1.8-2.4); TROPONIN-I < 0.017 ng/mL (0.000-0.060)
[2018-06-27 21:52] VITALS: BP 121/56
== END 2018-06-27 21:52 ==
LOC: D.ER 18:08
PROVIDERS: Family Medicine
DX: R53.1 Weakness (principal); E86.0 Dehydration; I95.9 Hypotension, unspecified; F03.90 Unspecified dementia, unspecified severity, without behavioral disturbance, psychotic disturbance, mood disturbance, and anxiety; I10 Essential (primary) hypertension